=== PATIENT | female | born 1970 | race Caucasian/White ===

== ENCOUNTER → 2016-11-04 | Outpatient (CLI) | payer BC ==
[2014-11-22 13:15] VITALS: BP 121/82
[~2016-11-04] MED LIST: FEXO60TA25 PO; HYDR-971 PO; IBUP-1027 PO; LISI1TAB3 PO; NAPR500T PO
--- NOTE | 2016-11-04 12:50 | KCIC ---
Bilateral digital screening mammograms with CAD: HISTORY Routine screening. COMPARISON Comparison is made to previous studt dated 10/02/2014. FINDINGS Breast density category B. The skin and nipples show no abnormalities. No abnormal lymph nodes are seen in the axilla. The breast parenchyma shows scattered fibroglandular density. There continues to be a small nodular density consistent with an intramammary lymph node on the left. There are no new dominant masses, suspicious calcifications or architectural distortions. IMPRESSION No evidence of malignancy. Recommend routine annual mammographic screening. This study was interpreted with the benefit of Computerized Aided Detection (CAD). Mammography is not 100% sensitive in detecting breast cancer. Therefore, a self breast exam and a clinical breast exam are very important. A negative mammogram does not negate a clinically suspicious finding and should not result in a delay in biopsying a clinically suspicious abnormality. BI-RADS category 2: Benign. This patient's information has been entered into a reminder system for the patient to be notified with the results of this examination and a target date for her next mammograms. Electronically signed by: Mila Hernandez MD (Nov 04, 2016 12:49:26)
== END | disposition home or self-care (01) ==
LOC: KCIC MAMMO 07:44
PROVIDERS: ATTEND Family Medicine
DX: Z12.31 Encounter for screening mammogram for malignant neoplasm of breast (principal)
CPT/HCPCS: G0202; 77067

== ENCOUNTER → 2018-05-18 | Outpatient (CLI) | payer BC ==
[2014-11-22 13:15] VITALS: BP 121/82
[~2018-05-18] MED LIST changes: +NAPR-683 PO; -NAPR500T PO
--- NOTE | 2018-05-18 14:29 | KCIC ---
Bilateral digital screening mammograms: Reason for examination: Routine screening. Comparison is made to previous studies dated 11/04/2016 and 10/02/2014. Interpretation was made with the benefit of CAD. The skin and nipples show no abnormalities. No abnormal axillary lymph nodes are seen. The breast parenchyma shows scattered fibroglandular density. (Breast density: Category B.) There continues to be small parenchymal density posterior medially in the left breast on CC view which is unchanged probably located at the 9:00 C position. There is however some new nodularity suggested anteriorly in the right breast at approximately the 1:00 and 11:00 positions. Further evaluation with coned compression views and ultrasound is recommended. There are no other new dominant masses, suspicious calcifications or architectural distortions. Impression: New areas of nodularity are suggested anteriorly in the right breast. Recommend further evaluation with coned compression views and ultrasound. BI-RADS Category 0: Incomplete. Needs additional imaging evaluation. "Our facility is accredited by the [employer] Mammography [employer]." This patient's information has been entered into a reminder system for the patient to be notified with the results of her examination and a target date for the next mammogram. Electronically signed by: Kristine Hernandez MD (05/18/2018 2:26 PM) [id number]
== END | disposition home or self-care (01) ==
LOC: KCIC MAMMO 12:12
PROVIDERS: ATTEND Family Medicine
DX: Z12.31 Encounter for screening mammogram for malignant neoplasm of breast (principal); I10 Essential (primary) hypertension; Z72.0 Tobacco use
CPT/HCPCS: 77067

== ENCOUNTER → 2018-05-25 | Outpatient (CLI) | payer BC ==
[2014-11-22 13:15] VITALS: BP 121/82
--- NOTE | 2018-05-25 16:02 | RAD ---
DATE: 05/25/2018 EXAM: DIGITAL DIAGNOSTIC RT HISTORY: Abnormal finding of the right breast on recent screening mammogram COMPARISON: 10/02/2014, 11/04/2016, 05/18/2018 screening This study was interpreted with the benefit of Computerized Aided Detection (CAD). Breast Density: SCATTERED The breast parenchyma shows scattered fibroglandular densities. Breast parenchyma level B. FINDINGS: Slight compression imaging of the right upper breast in the MLO projection and the right outer breast in the CC projection was performed. The focal asymmetry of interest is less evident upon spot compression imaging. IMPRESSION: Six-month follow-up right unilateral diagnostic mammography and possibly ultrasound examination recommended. BI-RADS CATEGORY: 3 PROBABLY BENIGN FINDING(S)-SHORT INTERVAL FOLLOW-UP SUGGESTED RECOMMENDED FOLLOW-UP: PQRS compliance statement: Patient information was entered into a reminder system with a target due date for the next mammogram. Mammography is a sensitive method for finding small breast cancers, but it does not detect them all and is not a substitute for careful clinical examination. A negative mammogram does not negate a clinically suspicious finding and should not result in delay in biopsying a clinically suspicious abnormality. "Our facility is accredited by the [employer]ammography [employer]."
== END | disposition home or self-care (01) ==
LOC: MAMMO 10:13
PROVIDERS: ATTEND Family Medicine
DX: R92.8 Other abnormal and inconclusive findings on diagnostic imaging of breast (principal)
CPT/HCPCS: 77065

== ENCOUNTER → 2018-12-05 | Outpatient (CLI) | payer BC ==
[2014-11-22 13:15] VITALS: BP 121/82
[~2018-12-05] MED LIST changes: +HYDR-3164 PO; -HYDR-971 PO
--- NOTE | 2018-12-05 11:08 | KCIC ---
Right breast diagnostic digital mammogram: Reason for examination: Follow-up nodularity seen previously. Comparison is made to previous studies dated 05/18/2018 and 05/25/2018. Interpretation was made with the benefit of CAD. The skin and nipple show no abnormalities. No abnormal axillary lymph nodes are seen. The breast parenchyma shows scattered fibroglandular density. (Breast density: Category B.) There are no dominant masses, suspicious calcifications or architectural distortions. Impression: No evidence of malignancy. Recommend routine screening. BI-RADS Category 1: Negative. "Our facility is accredited by the [employer]ammography [employer]." This patient's information has been entered into a reminder system for the patient to be notified with the results of her examination and a target date for the next mammogram. Electronically signed by: Kristine Hernandez MD (12/05/2018 11:05 AM) [id number]
== END ==
LOC: KCIC MAMMO 10:26
PROVIDERS: ATTEND Family Medicine
DX: N64.89 Other specified disorders of breast (principal)
CPT/HCPCS: 77065

== ENCOUNTER → 2019-06-09 | Outpatient (CLI) | payer BC ==
[2014-11-22 13:15] VITALS: BP 121/82
[~2019-06-09] MED LIST changes: +LISI1TAB23 PO; -LISI1TAB3 PO
--- NOTE | 2019-06-09 12:43 | KCIC ---
Bilateral digital screening mammograms: Reason for examination: Routine screening. Comparison is made to previous studies dated back to 10/02/2014. Interpretation was made with the benefit of CAD. The skin and nipples show no abnormalities. No abnormal axillary lymph nodes are seen. The breast parenchyma shows scattered fibroglandular density. (Breast density: Category B.) There continues to be a small nodular density posterior medially in the left breast seen best on oblique view and probably in the lower inner quadrant. There are no new dominant masses, suspicious calcifications or architectural distortions. There are punctate calcifications seen bilaterally. Impression: No evidence of malignancy. Recommend routine screening. BI-RADS Category 2: Benign. "Our facility is accredited by the [employer] Mammography [employer]." This patient's information has been entered into a reminder system for the patient to be notified with the results of her examination and a target date for the next mammogram. Electronically signed by: Kristine Hernandez MD (06/09/2019 12:39 PM) [id number]
== END | disposition home or self-care (01) ==
LOC: KCIC MAMMO 10:42
PROVIDERS: ATTEND Obstetrics & Gynecology
DX: Z12.31 Encounter for screening mammogram for malignant neoplasm of breast (principal); N64.89 Other specified disorders of breast
CPT/HCPCS: 77067